=== PATIENT | female | born 1990 | race American Indian/Alaskan Native ===

== ENCOUNTER 2016-10-26 19:22 | Emergency (ER) | payer SELFPAY ==
--- NOTE | 2016-10-26 20:14 | Emergency Department Report ---
Chief Complaint: Syncope Stated Complaint: SYNCOPE Time Seen by Provider: 10/26/16 20:06 - HPI History of Present Illness: This is a 26 year patient here because she said she passed out at home. She says she's having chest pain after she passed out. Denies any headache or bleeding. Reports that she lost consciousness and her sister woke her up. Able to tell me how long she lost consciousness for. Patient says she did not do any drugs in the last time she drank alcohol was yesterday. Chest pain without radiation is 5 out of 10. She has a history of headaches but she is not having any headaches at present. She says she was short of breath earlier but she is not short of breath now. Denies any fever or chills. - ROS Review of Systems: All systems are negative unless stated in HPI above. - Exam Vital Signs: Vital Signs 10/26/16 19:33 Temperature 98.1 F Pulse Rate 125 H Respiratory 16 Rate Blood Pressure 136/74 O2 Sat by Pulse 100 Oximetry Physical Exam: General: This is an obese female that is in no acute distress. CV: S1, S2. Tachycardic at 125. mini-Neuro: GCS of 15, Speech is clear and fluid. Negative pronator drift and negative Romberg. alert and oriented 3. Normal gait. MSE screening note: Focused history and physical exam performed. Due to findings the following was ordered:see MDM ED Medical Decision Making - Medical Decision Making Medical decision making: Patient seen by provider in triage area. Appropriate protocol activated and patient to main ED to be seen by physician. ED Disposition for MSE Condition: Stable
--- NOTE | 2016-10-26 21:25 | Cat Scan Report ---
FINAL REPORT PROCEDURE: CT HEAD/BRAIN WO CON TECHNIQUE: Computerized tomography of the head was performed without contrast material. HISTORY: Syncope COMPARISON: No prior studies are available for comparison. FINDINGS: Visualized portions of the paranasal sinuses and mastoid air cells are clear. No calvarial fracture is seen. Cerebellar tonsils are low-lying without suggestion of Chiari 1 malformation. Cerebral ventricles are normal in size. No acute intracranial hemorrhage or mass effect is seen. No CVA is seen. IMPRESSION: Cerebellar tonsils are low-lying without evidence of Chiari 1 malformation.
[2016-10-26 21:45] LABS: Basophils % (Auto) 0.5 % (0.0-1.8); Eosinophils % (Auto) 0.4 % (0.0-4.3); Hematocrit 40.3 % (30.3-42.9); Hemoglobin 13.3 gm/dl (10.1-14.3); Mean Corpuscular HGB Conc 33 % (30-34); Mean Corpuscular Hemoglobin 27 pg (28-32); Mean Corpuscular Volume 81 fl (79-97); Platelet Count 336 K/mm3 (140-440); Red Blood Count 4.99 M/mm3 (3.65-5.03); Red Cell Distribution Width 16.1 % (13.2-15.2); White Blood Count 12.9 K/mm3 (4.5-11.0)
[2016-10-26 21:51] LABS: Creatine Kinase MB 1.1 ng/mL (0.0-4.0)
[2016-10-26 21:52] LABS: INR 0.97 (0.87-1.13); Partial Thromboplastin Time 29.6 Sec. (24.2-36.6)
[2016-10-26 21:54] LABS: Alanine Aminotransferase 14 units/L (7-56); Albumin 3.9 g/dL (3.9-5); Albumin/Globulin Ratio 1.2 %; Alkaline Phosphatase 105 units/L (35-129); BUN/Creatinine Ratio 17.14; Bilirubin,Total 0.2 mg/dL (0.1-1.2); Blood Urea Nitrogen 12 mg/dL (7-17); Carbon Dioxide 27 mmol/L (22-30); Chloride 99.6 mmol/L (98-107); Creatine Kinase 136 units/L (30-135); Glucose 115 mg/dL (65-100); Magnesium 1.8 mg/dL (1.7-2.3); Potassium 4.3 mmol/L (3.6-5.0); Sodium 139 mmol/L (137-145); Total Protein 7.1 g/dL (6.3-8.2)
[2016-10-26 21:55] LABS: Anion Gap 17 mmol/L
[2016-10-26 22:06] LABS: Urine Drugs of Abuse Note Disclamer
[2016-10-26 23:02] LABS: Bilirubin,Urine NEG (Negative); Blood,Urine SM (Negative); Ketones,Urine NEG (Negative); Leukocyte Esterase,Urine TR (Negative); Mucus,Urine 2+ /HPF; Nitrite,Urine NEG (Negative); Protein,Urine <15 mg/dL mg/dL (Negative); Urobilinogen,Urine < 2.0 mg/dL (<2.0)
[2016-10-27 02:45] VITALS: BP 114/76
== END 2016-10-27 08:30 | disposition left against medical advice (07) ==
LOC: ED 19:22
DX: R07.9 Chest pain, unspecified (principal); R06.02 Shortness of breath; R55 Syncope and collapse; Z53.21 Procedure and treatment not carried out due to patient leaving prior to being seen by health care provider
CPT/HCPCS: 36415; 70450; 80053; 80307; 81001; 82550; 82553; 83735; 84484; 85025; 85610; 85730; 93005; 93010

== ENCOUNTER 2017-05-14 09:59 | Emergency (ER) | payer SELFPAY ==
[2017-05-14 10:20] VITALS: BP 123/80
--- NOTE | 2017-05-14 10:20 | Emergency Department Report ---
Chief Complaint: Extremity Injury, Upper Stated Complaint: LEFT PINKY INJURY Time Seen by Provider: 05/14/17 10:17 - HPI History of Present Illness: PT states she was playing [employer] yesterday and someone fell on her L little finger. PT states the tip was going sideways. PT states she straitened her finger out but the pain became worse last night. - ROS Review of Systems: pt denies other injuries + swelling and pain to L 5th finger - Exam Physical Exam: pt looks well, non toxic. + swelling to L 5th finger, decreased rom to L 5th finger MSE screening note: Focused history and physical exam performed. Due to findings the following was ordered: xr ED Disposition for MSE Condition: Stable
--- NOTE | 2017-05-14 10:40 | XRay Report ---
Left fifth finger 3 views: History: Left finger pain and injury. Findings: There is nondisplaced avulsion fracture noted at the dorsal aspect of base of the distal phalanx fifth finger left hand. Impression: Findings as detailed above.
[2017-05-14] MEDS ORDERED: MOTRIN PO ONE (12:49)
--- NOTE | 2017-05-14 17:33 | Emergency Department Report ---
Entered by GLENNA SETHI, acting as scribe for KALYN MELO NP. ED Upper Extremity Inj HPI - General Chief Complaint: Extremity Injury, Upper Stated Complaint: LEFT PINKY INJURY Time Seen by Provider: 05/14/17 10:17 Source: patient Mode of arrival: Ambulatory Limitations: No Limitations - History of Present Illness Initial Comments: This is a 26 y/o female that is nontoxic, well nourished in appearance, no acute signs of distress with a PMHx of anxiety presents with c/o left fifth finger pain that began 1 day ago. Rates pain a 9/10 in severity, which she describes as aching in quality. Aggravated with movement of the fifth finger and alleviated with immobilization. Patient states she was playing paint ball yesterday, someone stepped on her finger, and it subsequently dislocated. Patient reports she straightened her finger and reduced her dislocation, but the pain worsened last night. Reports associated swelling, but she denies numbness and tingling. NKDA. CALHOUN Complaint: Injury to:: left, finger (fifth) Onset/Timin -: days(s) Other Extremity Injury: Fingers: Left (little) Other Injuries: none Handedness: right Place: outdoors Severity scale (0 -10): 9 Improves With: immobilization Worsens With: movement of extremity Context: sports-related injury, other (finger was stepped on) Associated Symptoms: denies other symptoms, other (left fifth finger swelling). denies: weakness, numbness, neck pain, suspects foreign body, nausea/vomiting , heard/felt popping sensat - Related Data Home Medications Medication Instructions Recorded Confirmed Last Taken EPINEPHrine [Epipen 2-Conrad] 11/01/14 11/01/14 Unknown Previous Rx's Medication Instructions Recorded Last Taken Type Sulfamethoxazole/Trimethoprim 1 each PO BID #20 tablet 11/02/14 Unknown Rx [Bactrim Ds] Ibuprofen [Motrin 600 MG tab] 600 mg PO Q8H PRN #30 tablet 05/14/17 Unknown Rx Allergies Allergy/AdvReac Type Severity Reaction Status Date / Time apple Allergy Swelling Verified 11/01/14 20:10 chocolate flavor Allergy Hives Verified 11/01/14 20:11 pear Allergy Swelling Verified 11/01/14 20:10 shellfish derived Allergy Swelling Verified 11/01/14 20:11 ED Review of Systems Comment: All other systems reviewed and negative Constitutional: denies: chills, fever Eyes: denies: eye pain, eye discharge, vision change ENT: denies: ear pain, throat pain Respiratory: denies: cough, orthopnea, shortness of breath, SOB with exertion, SOB at rest, stridor, wheezing Cardiovascular: denies: chest pain, palpitations, dyspnea on exertion, orthopnea , edema, syncope, paroxysmal nocturnal dyspnea Endocrine: no symptoms reported Gastrointestinal: denies: abdominal pain, nausea, vomiting, diarrhea Musculoskeletal: arthralgia (left fifth finger pain). denies: back pain, joint swelling, myalgia Skin: denies: rash, lesions Neurological: denies: headache, weakness, paresthesias Psychiatric: denies: anxiety, depression Hematological/Lymphatic: denies: easy bleeding, easy bruising ED Past Medical Hx - Past Medical History Previous Medical History?: Yes Additional medical history: Panic attacks - Surgical History Past Surgical History?: No - Social History Smoking Status: Never Smoker Substance Use Type: Alcohol - Medications Home Medications: Home Medications Medication Instructions Recorded Confirmed Last Taken Type EPINEPHrine [Epipen 2-Conrad] 11/01/14 11/01/14 Unknown History Sulfamethoxazole/Trimethoprim 1 each PO BID #20 tablet 11/02/14 Unknown Rx [Bactrim Ds] Ibuprofen [Motrin 600 MG tab] 600 mg PO Q8H PRN #30 tablet 05/14/17 Unknown Rx ED Physical Exam - General Limitations: No Limitations General appearance: alert, in no apparent distress - Head Head exam: Present: atraumatic, normocephalic - Eye Eye exam: Present: normal appearance, PERRL, EOMI. Absent: scleral icterus, conjunctival injection, nystagmus, periorbital swelling, periorbital tenderness Pupils: Present: normal accommodation - ENT ENT exam: Present: normal exam, normal orophraynx, mucous membranes moist, TM's normal bilaterally, normal external ear exam - Neck Neck exam: Present: normal inspection, full ROM. Absent: tenderness, meningismus, lymphadenopathy, thyromegaly - Respiratory Respiratory exam: Present: normal lung sounds bilaterally. Absent: respiratory distress, wheezes, rales, rhonchi, stridor, chest wall tenderness, accessory muscle use, decreased breath sounds, prolonged expiratory - Cardiovascular Cardiovascular Exam: Present: regular rate, normal rhythm, normal heart sounds. Absent: systolic murmur, diastolic murmur, rubs, gallop - GI/Abdominal GI/Abdominal exam: Present: soft, normal bowel sounds. Absent: distended, tenderness, guarding, rebound, rigid, diminished bowel sounds - Extremities Exam Extremities exam: Present: full ROM (limited and painful ROM to left fifth finger), tenderness (left fifth finger), normal capillary refill. Absent: normal inspection, pedal edema, joint swelling, calf tenderness - Expanded Upper Extremity Exam Left General: Present: normal inspection. Absent: laceration, abrasion, nail injury (#), foreign body, amputation, avulsion Shoulder Exam: Present: normal inspection, full ROM. Absent: tenderness, swelling, abrasion, laceration, ecchymosis, deformity, crepidus, dislocation, erythema, tenderness over AC joint Upper Arm exam: Present: normal inspection, full ROM. Absent: tenderness, swelling, abrasion, laceration, ecchymosis, deformity, crepidus, dislocation, erythema Elbow exam: Present: normal inspection, full ROM. Absent: tenderness, swelling , abrasion, laceration, ecchymosis, deformity, crepidus, dislocation, erythema, effusion, pain w/ pronation/supination, tenderness over radial head Forearm Wrist exam: Present: normal inspection, full ROM. Absent: tenderness, swelling, abrasion, laceration, ecchymosis, deformity, crepidus, dislocation, erythema, tenderness over anatomical snuff box, pain with axial thumb loading Hand Wrist exam: Present: full ROM (limited and painful ROM to left fifth finger ), tenderness (left fifth finger), ecchymosis (left fifth finger). Absent: normal inspection, swelling, abrasion, laceration, deformity, crepidus, dislocation, erythema, amputation, nail avulsion, subungual hematoma Neuro motor exam: Present: wrist extension intact, thumb opposition intact, thumb IP flexion intact, thumb adduction intact, fingers 2-5 abduction intact Neurosensory exam: Present: 2-point discrimination, radial nerve intact Vascular: Present: normal capillary refill, radial pulse (2+), brachial pulse, ulnar pulse. Absent: vascular compromise, Pallo, pulse deficit radial art - Back Exam Back exam: Present: normal inspection, full ROM. Absent: tenderness, CVA tenderness (R), CVA tenderness (L), muscle spasm, paraspinal tenderness, vertebral tenderness, rash noted - Neurological Exam Neurological exam: Present: alert, oriented X3, CN II-XII intact, normal gait, reflexes normal. Absent: motor sensory deficit - Psychiatric Psychiatric exam: Present: normal affect, normal mood - Skin Skin exam: Present: warm, dry, intact. Absent: rash ED Course Vital Signs 05/14/17 10:18 Temperature 98.4 F Pulse Rate 91 H Respiratory 16 Rate Blood Pressure 123/80 O2 Sat by Pulse 95 Oximetry - Reevaluation(s) Reevaluation #1: 05/14/17 12:45 Patient is able to speak in full sentences with no signs of distress. ED Medical Decision Making - Medical Decision Making Ed course: This is a 26-year-old female that presents with distal phalanx fifth finger avulsion fracture 1- patient was examined by myself. There are no vascular abnormalities. No signs of any deformity. X-ray has been obtained with positive fracture of avulsion fracture of distal phalanx fifth finger of left hand. Patient received x-ray findings with no further questions noted by the patient. 2- patient received a finger splint and was instructed to follow-up with Dr. Mancia ordered orthopedic doctor in 3-5 days or symptoms such as numbness, tingling, fever, joint swelling, joint redness, chills, chest pain or shortness of breath return to emergency room as was possible 3- patient received ibuprofen in the ED as well as discharged. 4- patient was instructed to rest, elevate, ice extremity. 5- At time time of discharge, the patient does not seem toxic or ill in appearance. No acute signs of distress noted. Patient agrees to discharge treatment plan of care. No further questions noted by the patient. ED Disposition Clinical Impression: Finger fracture, left Qualifiers: Encounter type: initial encounter Finger: little finger Fracture type: closed Phalanx: distal Fracture alignment: nondisplaced Qualified Code(s): S62.667A - Nondisplaced fracture of distal phalanx of left little finger, initial encounter for closed fracture Disposition: - TO HOME OR SELFCARE Is pt being admited?: No Does the pt Need Aspirin: No Condition: Stable Instructions: Finger Fracture (ED), Splint Care (ED), Ibuprofen (By mouth) Additional Instructions: follow-up with Dr. Mancia ordered orthopedic doctor in 3-5 days or symptoms such as numbness, tingling, fever, joint swelling, joint redness, chills, chest pain or shortness of breath return to emergency room as was possible Rest, elevate, and ice extremity. Prescriptions: Ibuprofen [Motrin 600 MG tab] 600 mg PO Q8H PRN #30 tablet PRN Reason: Pain Referrals: PRIMARY CAREMD [Primary Care Provider] - 3-5 Days ELIZABETH MANCIA MD [Staff Physician] - 3-5 Days TAYO LY MD [Staff Physician] - 3-5 Days [facility] [Outside] - 3-5 Days [facility] [Outside] - 3-5 Days Forms: Work/School Release Form(ED) This documentation as recorded by the JOSSIE read JASMINE,accurately reflects the service I personally performed and the decisions made by ,KALYN MELO, SLEEP TECH.
== END 2017-05-14 13:02 | disposition home or self-care (01) ==
LOC: ED 09:59
DX: S62.667A Nondisplaced fracture of distal phalanx of left little finger, initial encounter for closed fracture (principal); W21.00XA Struck by hit or thrown ball, unspecified type, initial encounter; Y93.9 Activity, unspecified; Y92.9 Unspecified place or not applicable; Y99.9 Unspecified external cause status

== ENCOUNTER 2017-07-21 02:28 | Emergency (ER) | payer MEDICAID ==
[2017-07-21 03:03] VITALS: BP 119/77
[2017-07-21 03:54] LABS: Basophils % (Auto) 0.4 % (0.0-1.8); Eosinophils % (Auto) 1.7 % (0.0-4.3); Hematocrit 37.7 % (30.3-42.9); Mean Corpuscular HGB Conc 35 % (30-34); Mean Corpuscular Hemoglobin 28 pg (28-32); Mean Corpuscular Volume 81 fl (79-97); Platelet Count 330 K/mm3 (140-440); Red Blood Count 4.65 M/mm3 (3.65-5.03); Red Cell Distribution Width 15.6 % (13.2-15.2); White Blood Count 10.6 K/mm3 (4.5-11.0)
[2017-07-21 04:19] LABS: Alanine Aminotransferase 15 units/L (7-56); Albumin 3.7 g/dL (3.9-5); Albumin/Globulin Ratio 1.1 %; Alkaline Phosphatase 90 units/L (35-129); Anion Gap 16 mmol/L; BUN/Creatinine Ratio 9; Blood Urea Nitrogen 8 mg/dL (7-17); Calcium 9.1 mg/dL (8.4-10.2); Carbon Dioxide 24 mmol/L (22-30); Chloride 101.8 mmol/L (98-107); Glucose 99 mg/dL (65-100); Lipase 28 units/L (13-60); Potassium 3.8 mmol/L (3.6-5.0); Sodium 138 mmol/L (137-145); Total Protein 7.2 g/dL (6.3-8.2)
[2017-07-21 07:50] LABS: Bilirubin,Urine NEG (Negative); Blood,Urine NEG (Negative); Ketones,Urine NEG (Negative); Leukocyte Esterase,Urine TR (Negative); Mucus,Urine FEW /HPF; Nitrite,Urine NEG (Negative); Protein,Urine <15 mg/dL mg/dL (Negative); Urobilinogen,Urine < 2.0 mg/dL (<2.0)
== END 2017-07-21 03:09 | disposition left against medical advice (07) ==
LOC: ED 02:28
DX: T62.91XA Toxic effect of unspecified noxious substance eaten as food, accidental (unintentional), initial encounter (principal); Z53.21 Procedure and treatment not carried out due to patient leaving prior to being seen by health care provider
CPT/HCPCS: 36415; 80053; 81001; 83690; 84703; 85025

== ENCOUNTER 2018-01-30 10:44 | Emergency (ER) | payer MEDICAID, OTHER ==
[2018-01-30 10:52] VITALS: BP 121/87
[2018-01-30] MEDS ORDERED: MOTRIN PO ONE (11:55)
[2018-01-30] MEDS ORDERED: CLEOCIN IM ONE (11:55)
--- NOTE | 2018-01-30 11:58 | Emergency Department Report ---
ED ENT HPI - General Chief complaint: Dental/Oral Stated complaint: FACE SWOLLEN Time Seen by Provider: 01/30/18 11:51 Source: patient Mode of arrival: Ambulatory Limitations: No Limitations - History of Present Illness Initial comments: This is a 23-year-old male nontoxic, well nourished in appearance, no acute signs of distress presents to the ED with c/o of right upper toothache 1 days. Patient denies following up with a dentist and stated has an appointment next week. Patient stated that pain radiates from his job to his right side of head. Patient otherwise denies any head trauma. Patient describes toothache as aching level of 8 out of 10. Patient denies any facial swelling. Patient denies any numbness, tingling, fever, chills, headache, stiff neck, abdominal pain, chest pain, shortness of breath. Patient denies any drug allergies or significant past medical history. MD complaint: tooth pain -: days(s) (1) Location: tooth # 1 - pain Severity: mild Severity scale (0 -10): 8 Quality: aching Consistency: constant Improves with: none Worsens with: none Context- Dental: history of dental caries, poor dental care Associated Symptoms: gum swelling, toothache. denies: fever, cough, pain with swallowing, sore throat, tinnitus, hearing loss, discharge from ear, rhinorrhea - Related Data Home Medications Medication Instructions Recorded Confirmed Last Taken EPINEPHrine [Epipen 2-Conrad] 11/01/14 11/01/14 Unknown Previous Rx's Medication Instructions Recorded Last Taken Type Sulfamethoxazole/Trimethoprim 1 each PO BID #20 tablet 11/02/14 Unknown Rx [Bactrim Ds] Ibuprofen [Motrin 600 MG tab] 600 mg PO Q8H PRN #30 tablet 05/14/17 Unknown Rx Chlorhexidine Mouthwash [Peridex] 15 ml MM BID #1 bottle 01/30/18 Unknown Rx Clindamycin [Clindamycin CAP] 300 mg PO Q8H 7 Days cap 01/30/18 Unknown Rx Ibuprofen [Motrin] 600 mg PO Q8H PRN #30 tablet 01/30/18 Unknown Rx traMADol [Ultram] 50 mg PO Q6HR PRN #12 tablet 01/30/18 Unknown Rx Allergies Allergy/AdvReac Type Severity Reaction Status Date / Time apple Allergy Swelling Verified 01/30/18 10:50 chocolate flavor Allergy Hives Verified 01/30/18 10:50 pear Allergy Swelling Verified 01/30/18 10:50 shellfish derived Allergy Swelling Verified 01/30/18 10:50 ED Dental HPI - General Chief complaint: Dental/Oral Stated complaint: FACE SWOLLEN Time Seen by Provider: 01/30/18 11:51 Source: patient Mode of arrival: Ambulatory Limitations: No Limitations - Related Data Home Medications Medication Instructions Recorded Confirmed Last Taken EPINEPHrine [Epipen 2-Conrad] 11/01/14 11/01/14 Unknown Previous Rx's Medication Instructions Recorded Last Taken Type Sulfamethoxazole/Trimethoprim 1 each PO BID #20 tablet 11/02/14 Unknown Rx [Bactrim Ds] Ibuprofen [Motrin 600 MG tab] 600 mg PO Q8H PRN #30 tablet 05/14/17 Unknown Rx Chlorhexidine Mouthwash [Peridex] 15 ml MM BID #1 bottle 01/30/18 Unknown Rx Clindamycin [Clindamycin CAP] 300 mg PO Q8H 7 Days cap 01/30/18 Unknown Rx Ibuprofen [Motrin] 600 mg PO Q8H PRN #30 tablet 01/30/18 Unknown Rx traMADol [Ultram] 50 mg PO Q6HR PRN #12 tablet 01/30/18 Unknown Rx Allergies Allergy/AdvReac Type Severity Reaction Status Date / Time apple Allergy Swelling Verified 01/30/18 10:50 chocolate flavor Allergy Hives Verified 01/30/18 10:50 pear Allergy Swelling Verified 01/30/18 10:50 shellfish derived Allergy Swelling Verified 01/30/18 10:50 ED Review of Systems ROS: Stated complaint: FACE SWOLLEN Other details as noted in HPI Constitutional: denies: chills, fever Eyes: denies: eye pain, eye discharge, vision change ENT: dental pain. denies: ear pain, throat pain Respiratory: denies: cough, shortness of breath, wheezing Cardiovascular: denies: chest pain, palpitations Endocrine: no symptoms reported Gastrointestinal: denies: abdominal pain, nausea, diarrhea Genitourinary: denies: urgency, dysuria, discharge Musculoskeletal: denies: back pain, joint swelling, arthralgia Skin: denies: rash, lesions Neurological: denies: headache, weakness, paresthesias Psychiatric: denies: anxiety, depression Hematological/Lymphatic: denies: easy bleeding, easy bruising ED Past Medical Hx - Past Medical History Previous Medical History?: No Additional medical history: Panic attacks - Surgical History Past Surgical History?: No - Social History Smoking Status: Current Every Day Smoker Substance Use Type: Alcohol, Marijuana - Medications Home Medications: Home Medications Medication Instructions Recorded Confirmed Last Taken Type EPINEPHrine [Epipen 2-Conrad] 11/01/14 11/01/14 Unknown History Sulfamethoxazole/Trimethoprim 1 each PO BID #20 tablet 11/02/14 Unknown Rx [Bactrim Ds] Ibuprofen [Motrin 600 MG tab] 600 mg PO Q8H PRN #30 tablet 05/14/17 Unknown Rx Chlorhexidine Mouthwash [Peridex] 15 ml MM BID #1 bottle 01/30/18 Unknown Rx Clindamycin [Clindamycin CAP] 300 mg PO Q8H 7 Days cap 01/30/18 Unknown Rx Ibuprofen [Motrin] 600 mg PO Q8H PRN #30 tablet 01/30/18 Unknown Rx traMADol [Ultram] 50 mg PO Q6HR PRN #12 tablet 01/30/18 Unknown Rx ED Physical Exam - General Limitations: No Limitations General appearance: alert, in no apparent distress - Head Head exam: Present: atraumatic, normocephalic - Eye Eye exam: Present: normal appearance Pupils: Present: normal accommodation - ENT ENT exam: Present: mucous membranes moist - Expanded ENT Exam Expanded Ear exam: Present: normal external inspection Mouth exam: Present: normal external inspection, tongue normal. Absent: drooling, trismus, muffled voice, tongue elevation, laceration Teeth exam: Present: fractured tooth #, dental tenderness #, gingival enlargement, other (Slight facial swelling with no induration or flutance. Tender to touch.) 1 - Fractured, Dental Tenderness Throat exam: Positive: normal inspection, other (Uvula midline. No abscess or swelling noted. ). Negative: tonsillar erythema, tonsillomegaly, tonsillar exudate, R peritonsillar mass, L peritonsillar mass - Neck Neck exam: Present: normal inspection, full ROM. Absent: tenderness, meningismus, lymphadenopathy - Respiratory Respiratory exam: Present: normal lung sounds bilaterally. Absent: respiratory distress, wheezes, rales, rhonchi, stridor - Cardiovascular Cardiovascular Exam: Present: regular rate, normal rhythm, normal heart sounds. Absent: bradycardia, tachycardia, systolic murmur, diastolic murmur, rubs, gallop - GI/Abdominal GI/Abdominal exam: Present: soft, normal bowel sounds. Absent: distended, tenderness, guarding, rebound, rigid, diminished bowel sounds - Rectal Rectal exam: Present: deferred - Extremities Exam Extremities exam: Present: normal inspection, full ROM, normal capillary refill - Back Exam Back exam: Present: normal inspection, full ROM - Neurological Exam Neurological exam: Present: alert, oriented X3, normal gait - Psychiatric Psychiatric exam: Present: normal affect, normal mood - Skin Skin exam: Present: warm, dry, intact, normal color. Absent: rash ED Course Vital Signs 01/30/18 10:50 Temperature 98.4 F Pulse Rate 76 Respiratory 16 Rate Blood Pressure 121/87 O2 Sat by Pulse 99 Oximetry - Reevaluation(s) Reevaluation #1: 01/30/18 12:00 Patient is speaking in full sentences with no signs of distress noted. ED Medical Decision Making - Medical Decision Making This is a 27-year-old female that presents with gingivitis and dental caries. Patient is stable and was examined by me. There is slight swelling to the right upper mandible. I used 18-gauge hypo-with 10 mL syringe and try to aspirate in the right gingival area to make sure this was an abscess and no prominent drainage has been noted. I did give patient clindamycin 600 mg IM in the ED and patient is discharged with clindamycin. He had strict instructions to follow-up with oral maxillary surgeon in 24 hours or if symptoms would worsen to return to emergency room as was possible. Patient is discharged with Ultram, Peridex and Clinda. Patient was instructed not to operate any machinery when taking Ultram due to drowsiness. At time of discharge, the patient does not seem toxic or ill in appearance. No acute signs of distress noted. Patient agrees to discharge treatment plan of care. No further questions noted by the patient. Critical care attestation.: If time is entered above; I have spent that time in minutes in the direct care of this critically ill patient, excluding procedure time. ED Disposition Clinical Impression: Dental caries, Gingivitis Disposition: TO HOME OR SELFCARE Is pt being admited?: No Does the pt Need Aspirin: No Condition: Stable Instructions: Dental Caries (ED), Gingivitis (ED), Clindamycin (By mouth), Tramadol (By mouth), Ibuprofen (By mouth) Additional Instructions: Follow-up with a oral maxillary surgeon in 24 hours or if symptoms worsen and continue return to emergency room as soon as possible. [facility] [employer] Address: [id number], [place] [address] Hours: Sunday 8AM1PM, 25PM 8AM1PM, 25PM Sunday 7AM2PM Sunday Closed Sunday Closed Sunday 8AM1PM, 25PM Sunday 8AM1PM, 25PM Prescriptions: Chlorhexidine Mouthwash [Peridex] 15 ml MM BID #1 bottle Clindamycin [Clindamycin CAP] 300 mg PO Q8H 7 Days cap Ibuprofen [Motrin] 600 mg PO Q8H PRN #30 tablet PRN Reason: Pain traMADol [Ultram] 50 mg PO Q6HR PRN #12 tablet PRN Reason: Pain Referrals: PRIMARY CARE, [Primary Care Provider] - 3-5 Days NIRAJ BOLDEN MD [Staff Physician] - 3-5 Days [facility] [Outside] - 24 Hours Forms: Work/School Release Form(ED)
== END 2018-01-30 12:25 | disposition home or self-care (01) ==
LOC: ED 10:44
DX: K05.10 Chronic gingivitis, plaque induced (principal); F17.200 Nicotine dependence, unspecified, uncomplicated; F12.10 Cannabis abuse, uncomplicated; Z91.013 Allergy to seafood; Z91.018 Allergy to other foods
CPT/HCPCS: 96372; 99282